=== PATIENT | male | born 1995 | race Caucasian/White ===

== ENCOUNTER 2020-10-07 10:56 | Emergency (ER) | payer SELFPAY ==
[2020-10-07 12:16] LABS: HEMATOCRIT 45.9 % (39.0-50.0); HEMOGLOBIN 15.1 g/dl (14.0-18.0); IMMATURE GRANULOCYTES 0.3 % (0.0-5.0); MEAN CELL VOLUME 97.7 fL CALC (80.0-100.0); MEAN CORPUSCULAR HGB 32.1 pG CALC (26.0-32.0); MEAN CORPUSCULAR HGB CONC 32.9 g/dL CAL (32.0-36.0); NEUT# 3.71 thou/uL (1.82-7.42); RED BLOOD COUNT 4.7 mill/uL (4.70-6.10); RED CELL DISTRI WIDTH 12.7 % (11.5-15.5)
[2020-10-07 12:30] LABS: URINE BILIRUBIN - DIPSTICK NEGATIVE (NEGATIVE); URINE BLOOD DIPSTICK NEGATIVE (NEGATIVE); URINE COLOR YELLOW; URINE GLUCOSE - DIPSTICK NEGATIVE (NEGATIVE); URINE KETONE NEGATIVE (NEGATIVE); URINE LEUK ESTERASE NEGATIVE (NEGATIVE); URINE PH 7.5 (4.5-8.0); URINE PROTEIN - DIPSTICK NEGATIVE (NEG-TRACE); URINE UROBILINOGEN - DIPSTICK 0.2 E.U./dL (0.2)
[2020-10-07 12:32] LABS: URINE NITRITE - DIPSTICK NEGATIVE (Negative)
[2020-10-07 12:40] LABS: D-DIMER 0.21 mg/L (0.19-0.60)
[2020-10-07 12:41] LABS: ALBUMIN 4.3 g/dL (3.2-5.0); ALKALINE PHOSPHATASE 63 u/l (38-126); ANION GAP 11 (6-22 (CALC)); BILIRUBIN, TOTAL 0.7 mg/dL (0.0-1.4); BUN 10 mg/dL (9-20); BUN/CREATININE RATIO 14 (12-20 (CALC)); CARBON DIOXIDE 27 mmol/l (22-30); CHLORIDE 105 mmol/l (95-108); CREATININE 0.7 mg/dL (0.7-1.3); GFR > 60 ML/MIN (>=60 (CALC)); GFR FOR AFR.AMER. > 60 ML/MIN (>=60 (CALC)); LIPASE 45 u/l (23-300); POTASSIUM 4.1 mmol/l (3.5-5.1); SGOT/AST 28 u/l (17-59); SODIUM 139 mmol/l (137-146); TOTAL PROTEIN 7.6 g/dL (6.3-8.2)
[2020-10-07 12:46] LABS: ACT PARTIAL THROMBO TIME 25.7 SECONDS (20.0-32.5); PROTHROMBIN TIME 10.6 SECONDS (9.0-12.5)
[2020-10-07] MEDS ORDERED: AMOXICILLIN875 MG PO (13:05)
[2020-10-07] MEDS ORDERED: IBUPROFEN600 MG PO (13:05)
[2020-10-07 13:07] VITALS: BP 126/63
== END 2020-10-07 13:10 | disposition home or self-care (01) | DRG 313 ==
LOC: ED 10:56
DX: R07.89 Other chest pain (principal); J02.0 Streptococcal pharyngitis; F17.210 Nicotine dependence, cigarettes, uncomplicated; Z20.822 Contact with and (suspected) exposure to COVID-19

== ENCOUNTER 2020-10-23 17:16 | Emergency (ER) | payer SELFPAY ==
[~2020-10-23] VITALS: Ht 180.3 cm; Wt 86.0 kg
[~2020-10-23 17:16] MED LIST: AMOXICILLIN875 MG PO; IBUPROFEN600 MG PO
[2020-10-23] MEDS ORDERED: [UNRECOGNIZED DRUG - OTHER] RE (17:45)
[2020-10-23 18:08] VITALS: BP 131/89
== END 2020-10-23 18:08 | disposition home or self-care (01) | DRG 395 ==
LOC: ED 17:16
DX: K64.4 Residual hemorrhoidal skin tags (principal); F17.200 Nicotine dependence, unspecified, uncomplicated

== ENCOUNTER 2021-03-30 14:12 | Emergency (ER) | payer SELFPAY ==
[~2021-03-30] VITALS: Ht 180.3 cm; Wt 75.0 kg
[~2021-03-30 14:12] MED LIST changes: +[UNRECOGNIZED DRUG - OTHER] RE
[2021-03-30] MEDS ORDERED: ERYTHROMYCIN O3.5 GM EX (15:23)
[2021-03-30 15:27] VITALS: BP 125/70
== END 2021-03-30 15:32 | disposition home or self-care (01) | DRG 125 ==
LOC: ED 14:12
DX: H00.014 Hordeolum externum left upper eyelid (principal); F17.200 Nicotine dependence, unspecified, uncomplicated

== ENCOUNTER 2023-05-31 10:20 | Emergency (ER) | payer SELFPAY ==
[~2023-05-31 10:20] MED LIST changes: +ERYTHROMYCIN O3.5 GM EX
== END 2023-05-31 11:16 | disposition left against medical advice (07) | DRG 951 ==
LOC: ED 10:20 → LWOBS 11:16
DX: Z53.21 Procedure and treatment not carried out due to patient leaving prior to being seen by health care provider (principal)